=== PATIENT | female | born 1965 | race Caucasian/White ===

== ENCOUNTER 2017-08-20 19:49 | Inpatient (IN) ==
[2017-08-20] MEDS ORDERED: SALINE FLUSH 10ml SYRINGE IVF PRN (20:09)
[2017-08-20] MEDS ORDERED: DiphenhydrAMINE 50 MG/ML INJECTION IVP ONE (20:09)
[2017-08-20] MEDS ORDERED: NS 1,000 ML IV ONE (20:09)
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
[2017-08-20] MEDS: NITROGLYCERIN 0.4 MG SUBLINGUAL TABLET SL PRN ×3 (20:21→20:41)
[2017-08-20] MEDS ORDERED: ASPIRIN 81 MG CHEWABLE TABLET PO ONE (21:02)
[2017-08-20] MEDS ORDERED: ACETAMINOPHEN 325 MG TABLET PO PRN (22:15)
[2017-08-20] MEDS ORDERED: ALPRAZolam 0.25 MG TABLET PO PRN (22:15)
[2017-08-20] MEDS ORDERED: CYCLOBENZAPRINE 5 MG TABLET PO PRN (22:15)
[2017-08-20] MEDS ORDERED: HYDROCODONE/APAP 5mg/325mg TABLET PO PRN (22:15)
[2017-08-20] MEDS ORDERED: MORPHINE SULFATE 4mg INJECTION IVP PRN (22:15)
[2017-08-20] MEDS ORDERED: NITROGLYCERIN 0.4 MG SUBLINGUAL TABLET SL PRN (22:15)
[2017-08-20 22:48] VITALS: BMI 38.6
[2017-08-20] MEDS: NS 1,000 ML IV SCH (22:58)
[2017-08-20] MEDS ORDERED: FUROSEMIDE 20 MG/2 ML INJECTION IVP ONE (23:18)
[2017-08-20] MEDS ORDERED: HYDRALAZINE 20 MG/ML INJECTION IVP PRN (23:19)
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
[2017-08-20] MEDS: INSULIN DETEMIR 100unit/ml INJECTION SQ SCH (23:33)
[2017-08-21] MEDS ORDERED: METFORMIN 850 MG TABLET PO SCH (08:00)
[2017-08-21] MEDS ORDERED: INSULIN ASPART 100unit/ml INJECTION SQ PRN (08:31)
[2017-08-21] MEDS: LEVOTHYROXINE 50 MCG TABLET PO SCH (08:53)
[2017-08-21] MEDS: ISOSORBIDE MONONITRATE ER 60 MG TABLET PO SCH (08:53)
[2017-08-21] MEDS: INSULIN NPH SQ SCH ×2 (08:54→13:18)
[2017-08-21] MEDS: LISPRO SQ SCH ×2 (08:54→13:18)
[2017-08-21] MEDS: NS 1,000 ML IV SCH ×2 (08:54→19:25)
[2017-08-21] MEDS ORDERED: ASPIRIN 81 MG CHEWABLE TABLET PO SCH (09:00)
[2017-08-21] MEDS: CLOPIDOGREL 75 MG TABLET PO SCH (09:06)
[2017-08-21] MEDS: ESCITALOPRAM 10 MG TABLET PO SCH (09:06)
[2017-08-21] MEDS: LISINOPRIL 20 MG TABLET PO SCH (09:07)
[2017-08-21] MEDS: GABAPENTIN 300 MG CAPSULE PO SCH ×2 (09:07→20:58)
[2017-08-21] MEDS ORDERED: BUMETANIDE 2.5mg/10ml INJECTION IVP ONE (12:27)
[2017-08-21] MEDS ORDERED: INSULIN ASPART 100unit/ml INJECTION SQ SCH (12:30)
--- NOTE | 2017-08-21 12:36 | History & Physical Update ---
- History and Physical Update Date: 08/21/17 Update: I evaluated this patient and found no changes in the history and clinical exam findings. The treatment plan and recommendations are also unchanged from the previous documentation.
[2017-08-21] MEDS: EMPAGLIFLOZIN 10 MG TABLET PO SCH (13:12)
[2017-08-21] MEDS: NITROGLYCERIN 2% OINTMENT 1gm PACKET TP SCH (14:34)
[2017-08-21] MEDS: HYDRALAZINE 20 MG/ML INJECTION IVP PRN (15:53)
[2017-08-21] MEDS: INSULIN ASPART 100unit/ml INJECTION SQ SCH (17:26)
[2017-08-21] MEDS: CYPROHEPTADINE 4 MG TABLET PO SCH (20:57)
[2017-08-21] MEDS: ASPIRIN 81 MG CHEWABLE TABLET PO SCH (20:58)
[2017-08-21] MEDS ORDERED: INSULIN DETEMIR 100unit/ml INJECTION SQ SCH (21:00)
[2017-08-21] MEDS: INSULIN DETEMIR 100unit/ml INJECTION SQ SCH (21:06)
[2017-08-22] MEDS: NS 1,000 ML IV SCH ×2 (05:39→16:02)
[2017-08-22] MEDS: LEVOTHYROXINE 50 MCG TABLET PO SCH (05:39)
[2017-08-22] MEDS: ISOSORBIDE MONONITRATE ER 60 MG TABLET PO SCH (05:39)
[2017-08-22] MEDS: CLOPIDOGREL 75 MG TABLET PO SCH (08:56)
[2017-08-22] MEDS: LISINOPRIL 20 MG TABLET PO SCH (08:56)
[2017-08-22] MEDS: ESCITALOPRAM 10 MG TABLET PO SCH (08:56)
[2017-08-22] MEDS: ASPIRIN 81 MG CHEWABLE TABLET PO SCH (08:56)
[2017-08-22] MEDS: GABAPENTIN 300 MG CAPSULE PO SCH ×2 (08:56→21:12)
[2017-08-22] MEDS: NITROGLYCERIN 2% OINTMENT 1gm PACKET TP SCH (08:56)
[2017-08-22] MEDS: INSULIN ASPART 100unit/ml INJECTION SQ SCH ×4 (08:57→17:28)
[2017-08-22] MEDS: EMPAGLIFLOZIN 10 MG TABLET PO SCH (08:57)
--- NOTE | 2017-08-22 10:09 | XRay Report ---
Indication: Left lower chest pain tonight PROCEDURE: XR chest 1V: Encounter: Initial Comparison: July 01, 2014 Findings: The lungs are stable in appearance without new focal airspace consolidation. There is no pleural effusion or pneumothorax. The heart size, pulmonary vascularity and mediastinal contours are unchanged. Poststernotomy changes. Cardiac monitoring device. Monitoring leads. IMPRESSION: Stable appearance of the chest without acute cardiopulmonary disease. .
--- NOTE | 2017-08-22 10:25 | XRay Report ---
INDICATION: CHF PROCEDURE: CHEST 2-VIEWS UPRIGHT (PA & LAT) Encounter: Initial COMPARISON: August 20, 2017 FINDINGS: Slight increased interstitial prominence without lobar consolidation. Trace pleural effusions. No pneumothorax. Heart size and mediastinal contours are stable. Pulmonary vascularity is slightly prominent. Poststernotomy changes. Impression: Mild pulmonary edema, probably due to CHF. .
[2017-08-22] MEDS: RANOLAZINE 500 MG PO SCH ×2 (11:35→21:11)
--- NOTE | 2017-08-22 12:11 | Internal Med Progress Note ---
Internal Medicine Subjective Patient was seen and examined. at the bedside. Questions answered. Taina indicates that she is breathing better today. She also has better feeling in her feet. Her blood sugar went as low as 86. With the addition of Jardiance, I will begin to decrease her total daily insulin. Additionally, I am adding Ranexa to increase microcirculation. This is also been demonstrated to decrease serum glucose in diabetics with angina. She is more encouraged this morning. Exam Vital Signs: Temperature 97.2 F 08/22/17 07:51 Pulse Rate 95 08/22/17 08:00 Respiratory Rate 22 08/22/17 07:51 Blood Pressure 134/76 08/22/17 11:40 Pulse Oximetry 92 08/22/17 07:51 Height/Weight/BMI: Height 5 ft 6 in Weight 109 kg Body Mass Index 38.6 - Constitutional Present: no acute distress, obese, cooperative - Routine HEENT Exam Head: Present: normocephalic, atraumatic Eye: Present: EOMI, PERRL, conjunctivae pink. Absent: conjunctival icterus, scleral injection ENT: Present: mucous membranes moist, oropharynx clear, nares patent - Routine Neck Exam Present: supple. Absent: lymphadenopathy, thyromegaly - Routine Respiratory Exam Present: dyspnea, crackles (soft crackles in right lower lobe) - Routine Cardiovascular Exam Present: RRR. Absent: S3, S4 - Routine Abdominal Exam Present: soft, normoactive bowel sounds, non distended, non tender - Routine Extremities Exam Present: edema (lower extremity edema has improved). Absent: cyanosis, clubbing - Routine Skin Exam Present: intact. Absent: cyanosis, erythema, mottling, petechiae, urticaria, jaundice - Routine Neurological Exam Present: alert, oriented X3, CN II-XII intact - Routine Psychiatric Exam Present: cooperative, depressed, anxious Internal Medicine Results - Labs CBC & Chem 7: 08/22/17 04:03 08/22/17 04:03 Labs: Short CBC 08/22/17 Range/Units 04:03 WBC 6.4 (4.5-11.0) T/MM3 Hgb 12.4 (12-16) GM/DL Hct 38.8 (36-46) % Plt Count 265 (130-400) T/MM3 BMP 08/22/17 04:03 Sodium 144 D Potassium 3.5 L D Chloride 109 H Carbon Dioxide 25 BUN 16.0 Creatinine 0.7 Glucose 86 Calcium 9.1 Cardiac Enzymes 08/21/17 08/22/17 Range/Units 13:28 04:03 Troponin I 0.324 H 0.219 H (0-0.12) ng/ml Liver Function 08/22/17 Range/Units 04:03 Total Bilirubin 0.30 (0.20-1.30) MG/DL AST 18 (14-36) U/L ALT 27 (9-52) U/L Alkaline Phosphatase 84 (38-126) U/L Albumin 3.0 L (3.5-5.0) G/DL Progress Note-A&P - Time Spent With Patient Total time spent is greater than 50% in coordination of care (as documented) at patient's floor/unit and/or counseling patient: greater than 35 minutes (1) Diabetes mellitus type 2 in obese Status: Acute Assessment and plan: With the addition of Jardiance, I am decreasing her total daily insulin. Current Visit: Yes (2) Elevated brain natriuretic peptide (BNP) level Status: Acute Current Visit: Yes (3) Hypertensive urgency Status: Acute Current Visit: Yes (4) NSTEMI (non-ST elevated myocardial infarction) Status: Acute Assessment and plan: I've started Ranexa twice daily Current Visit: Yes - Assessment and Plan See above notes Hospital Course Summary Disclaimer: The visit summary below is not to be considered part of the above Progress Note.
[2017-08-22] MEDS ORDERED: INSULIN DETEMIR 100unit/ml INJECTION SQ SCH (12:17)
[2017-08-22] MEDS: CYPROHEPTADINE 4 MG TABLET PO SCH (21:12)
[2017-08-23] MEDS: NS 1,000 ML IV SCH ×3 (02:22→23:45)
[2017-08-23] MEDS: ISOSORBIDE MONONITRATE ER 60 MG TABLET PO SCH (06:29)
[2017-08-23] MEDS: LEVOTHYROXINE 50 MCG TABLET PO SCH (06:29)
[2017-08-23] MEDS: ASPIRIN 81 MG CHEWABLE TABLET PO SCH (09:19)
[2017-08-23] MEDS: INSULIN ASPART 100unit/ml INJECTION SQ SCH ×4 (09:19→19:45)
[2017-08-23] MEDS: CLOPIDOGREL 75 MG TABLET PO SCH (09:19)
[2017-08-23] MEDS: EMPAGLIFLOZIN 10 MG TABLET PO SCH (09:20)
[2017-08-23] MEDS: LISINOPRIL 20 MG TABLET PO SCH ×2 (09:20→20:42)
[2017-08-23] MEDS: GABAPENTIN 300 MG CAPSULE PO SCH ×2 (09:20→20:42)
[2017-08-23] MEDS: ESCITALOPRAM 10 MG TABLET PO SCH (09:20)
[2017-08-23] MEDS: RANOLAZINE 500 MG PO SCH ×2 (09:20→20:42)
[2017-08-23] MEDS: NITROGLYCERIN 2% OINTMENT 1gm PACKET TP SCH (09:21)
[2017-08-23] MEDS ORDERED: LEVOTHYROXINE 50 MCG TABLET PO SCH ×2 (10:00→10:45)
--- NOTE | 2017-08-23 18:43 | Internal Med Progress Note ---
Internal Medicine Subjective Patient was seen and examined. at the bedside. Questions answered. Taina seems to have had a good response to the insulin Ranexa and Jardiance. Nursing indicated that she refused to her Levemir last night. She did have a low blood sugar at least once today of 65. I have lowered her mealtime insulin and Levemir subsequent to this. She denies chest pain but is still very tired short of breath and has peripheral edema. Additionally, her troponin is still measurable which is concerning. She did have a hypertensive urgency event which necessitated her admission; I did add to her blood pressure medicine today. Exam Vital Signs: Temperature 98.2 F 08/23/17 15:18 Pulse Rate 62 08/23/17 17:33 Respiratory Rate 20 08/23/17 15:18 Blood Pressure 153/68 H 08/23/17 15:18 Pulse Oximetry 91 08/23/17 15:18 Telemetry Rhythm: Sinus Rhythm Height/Weight/BMI: Height 5 ft 6 in Weight 111.8 kg Body Mass Index 38.6 - Constitutional Present: mild distress, obese, cooperative - Routine HEENT Exam Head: Present: normocephalic, atraumatic Eye: Present: EOMI, PERRL. Absent: conjunctival icterus, scleral injection, conjunctivae pink ENT: Present: mucous membranes moist, oropharynx clear, nares patent - Routine Neck Exam Present: supple, JVD. Absent: lymphadenopathy, thyromegaly - Routine Chest/Breast/Axilla Exam Chest wall: Absent: tenderness Axillae: Absent: lymphadenopathy - Routine Respiratory Exam Present: decreased breath sounds, rales (soft, right lower lobe). Absent: accessory muscle use - Routine Cardiovascular Exam Present: RRR. Absent: S3, S4 - Routine Abdominal Exam Present: soft, normoactive bowel sounds, non distended, non tender. Absent: rebound, guarding, rigid - Routine Extremities Exam Present: edema. Absent: cyanosis, clubbing - Routine Skin Exam Present: intact. Absent: cyanosis, erythema, mottling, petechiae, urticaria, jaundice - Routine Neurological Exam Present: alert, oriented X3, CN II-XII intact, moving all extremities - Routine Psychiatric Exam Present: cooperative, good insight, good judgment, depressed, anxious. Absent: normal affect Internal Medicine Results - Labs CBC & Chem 7: 08/23/17 04:23 08/23/17 04:23 Labs: Short CBC 08/23/17 Range/Units 04:23 WBC 6.8 (4.5-11.0) T/MM3 Hgb 11.7 L (12-16) GM/DL Hct 37.0 (36-46) % Plt Count 264 (130-400) T/MM3 BMP 08/23/17 04:23 Sodium 143 Potassium 4.2 D Chloride 109 H Carbon Dioxide 26 BUN 21.0 H Creatinine 0.9 D Glucose 140 H Calcium 8.9 Cardiac Enzymes 08/23/17 Range/Units 04:23 Troponin I 0.193 H (0-0.12) ng/ml Liver Function 08/23/17 Range/Units 04:23 Albumin 3.0 L (3.5-5.0) G/DL Progress Note-A&P - Time Spent With Patient Total time spent is greater than 50% in coordination of care (as documented) at patient's floor/unit and/or counseling patient: 25 - 35 minutes (1) Diabetes mellitus type 2 in obese Status: Acute Assessment and plan: With the addition of Jardiance, I am decreasing her total daily insulin. Current Visit: Yes (2) Elevated brain natriuretic peptide (BNP) level Status: Acute Current Visit: Yes (3) Hypertensive urgency Status: Acute Current Visit: Yes (4) NSTEMI (non-ST elevated myocardial infarction) Status: Acute Assessment and plan: I've started Ranexa twice daily Current Visit: Yes - Assessment and Plan I have lowered Agata's Levemir to 30 units and her mealtime insulin to Humalog 10 units with meals 3 times a day. I may need to lowered again depending upon how she responds. Additionally, I'm going to give her next dose of Bumex 2 mg tonight IV as she still has considerable edema and I think fluid volume overload. Hospital Course Summary Disclaimer: The visit summary below is not to be considered part of the above Progress Note.
[2017-08-23] MEDS ORDERED: BUMETANIDE 2.5mg/10ml INJECTION IVP ONE (18:46)
[2017-08-23] MEDS: CYPROHEPTADINE 4 MG TABLET PO SCH (20:42)
[2017-08-23] MEDS ORDERED: INSULIN DETEMIR 100unit/ml INJECTION SQ SCH (21:00)
[2017-08-23] MEDS: HYDRALAZINE 20 MG/ML INJECTION IVP PRN (23:46)
[2017-08-24] MEDS: ISOSORBIDE MONONITRATE ER 60 MG TABLET PO SCH (05:38)
[2017-08-24] MEDS ORDERED: LEVOTHYROXINE 50 MCG TABLET PO SCH (06:30)
[2017-08-24] MEDS: INSULIN ASPART 100unit/ml INJECTION SQ SCH ×2 (08:15→12:46)
[2017-08-24] MEDS: ESCITALOPRAM 10 MG TABLET PO SCH (08:16)
[2017-08-24] MEDS: EMPAGLIFLOZIN 10 MG TABLET PO SCH (08:16)
[2017-08-24] MEDS: CLOPIDOGREL 75 MG TABLET PO SCH (08:16)
[2017-08-24] MEDS: ASPIRIN 81 MG CHEWABLE TABLET PO SCH (08:16)
[2017-08-24] MEDS: GABAPENTIN 300 MG CAPSULE PO SCH (08:16)
[2017-08-24] MEDS: NITROGLYCERIN 2% OINTMENT 1gm PACKET TP SCH (08:17)
[2017-08-24] MEDS: RANOLAZINE 500 MG PO SCH (08:17)
[2017-08-24] MEDS: LISINOPRIL 20 MG TABLET PO SCH (08:17)
[2017-08-24 08:24] VITALS: RESP 18; TEMP 96.8
[2017-08-24] MEDS: NS 1,000 ML IV SCH (10:07)
[2017-08-24 12:51] VITALS: BP 120/67; PULSE 61; O2SAT 96
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
[2017-08-29] MEDS ORDERED: LEVOTHYROXINE 50 MCG TABLET PO SCH (06:30)
== END 2017-08-24 14:55 | disposition home or self-care (01) | DRG 282 ==
LOC: ED 19:49 → SUATTDRO 21:16 → SRG 21:16
PROVIDERS: ADMIT Internal Medicine; ATTEND Internal Medicine